=== PATIENT | male | born 1935 | race Caucasian/White ===

== ENCOUNTER → 2017-08-11 | Outpatient (CLI) | payer MEDICARE, MEDICAID | END | disposition home or self-care (01) | LOC: CT 09:47 | PROVIDERS: ATTEND Internal Medicine Nephrology | DX: I70.0 Atherosclerosis of aorta (principal); I25.10 Atherosclerotic heart disease of native coronary artery without angina pectoris; J90 Pleural effusion, not elsewhere classified; J43.2 Centrilobular emphysema; N13.30 Unspecified hydronephrosis | CPT/HCPCS: 71250-TC ==

== ENCOUNTER 2018-02-12 08:51 | Outpatient (CLI) | payer MEDICARE, MEDICAID | END 2018-02-12 23:59 | disposition home or self-care (01) | LOC: CT 08:51 | PROVIDERS: ATTEND Surgery Vascular Surgery | DX: I71.6 Thoracoabdominal aortic aneurysm, without rupture (principal); N26.1 Atrophy of kidney (terminal); N13.2 Hydronephrosis with renal and ureteral calculous obstruction; N62 Hypertrophy of breast | CPT/HCPCS: 71250-TC ==

== ENCOUNTER 2018-02-20 12:40 | Outpatient (CLI) | payer MEDICARE, MEDICAID | END 2018-02-20 23:59 | disposition home or self-care (01) | LOC: VASLAB 12:40 | PROVIDERS: ATTEND Surgery Vascular Surgery | DX: I71.2 Thoracic aortic aneurysm, without rupture (principal) | CPT/HCPCS: G0463 ==

== ENCOUNTER 2018-04-24 13:00 | Outpatient (CLI) | payer MEDICARE, MEDICAID | END 2018-04-24 23:59 | disposition home or self-care (01) | LOC: VASLAB 13:00 | PROVIDERS: ATTEND Surgery Vascular Surgery | DX: I71.2 Thoracic aortic aneurysm, without rupture (principal) | CPT/HCPCS: G0463 ==

== ENCOUNTER 2019-01-10 12:55 | Outpatient (CLI) | payer MEDICARE, MEDICAID | END 2019-01-10 23:59 | disposition home or self-care (01) | LOC: CARD 12:55 | DX: I65.23 Occlusion and stenosis of bilateral carotid arteries (principal) | CPT/HCPCS: 93880-TC ==